=== PATIENT | female | born 1990 | race Caucasian/White ===

== ENCOUNTER → 2019-12-19 15:57 | Outpatient (CLI) | payer OTHER, SELFPAY ==
--- NOTE | 2019-12-19 15:58 | DI.US.S_ITS ---
PROCEDURE: US PELVIC COMPLETE INDICATIONS: ABNORMAL BLEEDING TECHNIQUE: Real-time scanning was performed of the pelvic organs, with image documentation. Additional endovaginal scanning was necessary due to incomplete visualization of the adnexal and endometrial structures by transabdominal scanning. COMPARISON: None. FINDINGS: Transabdominal scanning: A mild amount of free pelvic fluid is seen, which is considered to be within physiologic limits. Limited scanning through the kidneys shows no hydronephrosis. Endovaginal scanning: Uterus: Uterus is normal in size at 7.4 x 3.2 x 3.7 cm. The endometrium measures 10 mm in combined thickness. Ovaries: The right ovary measures 3.9 x 2.4 x 2.8 cm and demonstrates an apparent hemorrhagic cyst that measures up to 1.9 cm. The left ovary measures 2.8 x 1.7 x 1.6 cm and demonstrates numerous small follicular cysts, which are considered to be within physiologic limits. No adnexal masses are seen. IMPRESSION: No imaging explanation is found for this patient's presenting symptoms. An apparent hemorrhagic cyst can be seen involving the right ovary that measures up to 1.9 cm. At clinical discretion, a followup pelvic ultrasound is suggested in 6 weeks to assure resolution/ improvement. Dictated by: Fausto Anthony M.D. on 12/19/2019 at 15:59 Approved by: Fausto Anthony M.D. on 12/19/2019 at 16:01
== END ==
LOC: US 15:58
PROVIDERS: Family Provider Family Medicine; PCP Family Medicine; Referring Provider Family Medicine; Visit Provider Family Medicine
DX: N93.0 Postcoital and contact bleeding (principal); N92.4 Excessive bleeding in the premenopausal period; N83.201 Unspecified ovarian cyst, right side; Z87.898 Personal history of other specified conditions
CPT/HCPCS: 76830; 76856